=== PATIENT | female | born 1960 | race Caucasian/White ===

== ENCOUNTER → 2017-04-29 14:41 | Outpatient (POV) | payer BC, SELFPAY | PROVIDERS: Family Provider Family Medicine; PCP Family Medicine; Visit Provider Physician Assistant | DX: Z00.00 Encounter for general adult medical examination without abnormal findings (principal) ==

== ENCOUNTER → 2017-05-17 15:48 | Outpatient (CLI) | payer BC, SELFPAY ==
--- NOTE | 2017-05-17 15:52 | MM_ITS ---
MM Dig screening mamm BI w/CAD CAD Screening ORDERING PHYSICIAN : Gregg Daneilson MD PATIENT AGE: 57 years GENDER: Female COMPARISON: Previous mammograms: December 1999 30 April 2013. March 2010 HISTORY 57-year-old old with no hormones no new complaints. Previous excisional biopsy benign at the left breast: Family history. Noncontributory TECHNIQUE: Standard CC and MLO images were obtained. R2 CAD reviewed. FINDINGS: Low-density breast bilaterally with no dominant mass nor suspicious cavitations on breast Stable mild asymmetry with thyroid bladder elements most evident towards upper-outer quadrant right breast. Unchanged since prior study. RIGHT BREAST:. No significant new findings. Stable appearance when compared back to 2014 LEFT BREAST:Stable left breast. Follow-up in one year IMPRESSION: Stable mammogram No significant new findings. Follow-up one year recommended BI-RADS Category: 1 Negative RECOMMENDED FOLLOW-UP: 1YR - 1 YEAR FOLLOW-UP (A letter has been sent to the patient regarding results of the study.)
== END ==
PROVIDERS: Family Provider Family Medicine; PCP Family Medicine; Visit Provider Family Medicine
DX: Z12.31 Encounter for screening mammogram for malignant neoplasm of breast (principal)
CPT/HCPCS: 77067